=== PATIENT | female | born 1960 | race African-American/Black ===

== ENCOUNTER 2022-06-01 12:32 | Emergency (ER) | payer OTHER, MEDICAID ==
[~2022-06-01] VITALS: Ht 157.5 cm; Wt 82.0 kg
[2022-06-01 13:22] VITALS: BP 135/74
== END 2022-06-01 13:23 | disposition home or self-care (01) ==
LOC: ER 12:32
DX: S89.82XA Other specified injuries of left lower leg, initial encounter (principal); W01.0XXA Fall on same level from slipping, tripping and stumbling without subsequent striking against object, initial encounter; Y93.89 Activity, other specified; Y92.89 Other specified places as the place of occurrence of the external cause; Y99.8 Other external cause status; I10 Essential (primary) hypertension; Z90.710 Acquired absence of both cervix and uterus
CPT/HCPCS: 99281

== ENCOUNTER 2023-09-14 15:00 | Emergency (ER) | payer OTHER, MEDICAID ==
[~2023-09-14] VITALS: Ht 167.6 cm; Wt 70.0 kg
[~2023-09-14 15:00] MED LIST: IBUPROFEN 600MG TABLET PO NR
[2023-09-14] MEDS ORDERED: IBUPROFEN 600MG TABLET PO ONE (15:15)
[2023-09-14 15:20] VITALS: BP 166/92; PULSE 80; RESP 16; TEMP 97.8; O2SAT 100
[2023-09-14] MEDS ORDERED: NAPR-1129 MT (16:48)
== END 2023-09-14 21:28 | disposition home or self-care (01) ==
LOC: ER 15:00
DX: Z04.1 Encounter for examination and observation following transport accident (principal); I10 Essential (primary) hypertension; Z90.710 Acquired absence of both cervix and uterus; V99.XXXA Unspecified transport accident, initial encounter; Y93.89 Activity, other specified; Y92.89 Other specified places as the place of occurrence of the external cause; Y99.8 Other external cause status
CPT/HCPCS: 73090; 73110; 73560; 99284